=== PATIENT | male | born 1985 ===

== ENCOUNTER 2021-11-20 21:20 | Emergency (ER) | payer BC ==
[2021-11-20] MEDS ORDERED: LIDOCAINE 2% PO ONE ×2 (21:21)
[2021-11-20] MEDS ORDERED: ALUM HYDROX PO ONE ×2 (21:21)
[2021-11-20] MEDS ORDERED: MAG HYDROX PO ONE ×2 (21:21)
[2021-11-20] MEDS ORDERED: SIMETH PO ONE ×2 (21:21)
[2021-11-20] MEDS ORDERED: Albuterol 6.7 GM Inhaler INH ONE (22:13)
[2021-11-20] MEDS ORDERED: Famotidine 20 MG/2 ML SDV ONE (22:15)
[2021-11-20] MEDS ORDERED: Famotidine 20 MG/2 ML SDV IV ONE (22:16)
[2021-11-20 22:42] LABS: ESTIMATED GFR 99 mL/min (>60)
[2021-11-21] MEDS ORDERED: Iopamidol 755 Mg/ML 100 ML Bottle IVPUSH ONE (01:35)
[2021-11-21] MEDS ORDERED: Sodium Chloride 0.9% 100 ML IV SCH (01:45)
[2021-11-26] MEDS ORDERED: Sodium Chloride 0.9% 100 ML IV SCH (14:30)
== END 2021-11-21 02:25 ==
LOC: JD.ED 21:20
DX: T78.40XA Allergy, unspecified, initial encounter (principal); F17.210 Nicotine dependence, cigarettes, uncomplicated
CPT/HCPCS: 36415; 71275; 71275-26; 80053; 84484; 85025; 93005; 94640; 96374; 99283; 99285-25; A9270-GY; J3490; Q9967